=== PATIENT | male | born 1950 | race Caucasian/White ===

== ENCOUNTER 2018-05-15 10:38 | Observation (INO) ==
[2018-05-15] MEDS ORDERED: fentaNYL Citrate Inj 100 MCG/2 ML Ampul IV.PUSH ONE ×2 (14:57→15:30)
[2018-05-15] MEDS ORDERED: Bisacodyl 10 MG Supp RECTAL PRN (17:20)
[2018-05-15] MEDS ORDERED: Acetaminophen 325 MG Tablet PO PRN (17:20)
[2018-05-15] MEDS ORDERED: Iohexol 350 MG/ML 50 ML Vial (for Rad Diag) IVCONTRAST ONE (17:26)
--- NOTE | 2018-05-15 17:40 | P.HP ---
History of Present Illness Service: Hospitalist Primary Care Physician: UNKNOWN Chief Complaint: Abdominal pain History of Present Illness: Mr. Peraza is a 67-year-old male with a history of hypertension, ESRD on peritoneal dialysis who presented to the emergency department in [place] due to abdominal pain that started at night on 05/14/2018. Patient started experiencing abdominal pain at night during his peritoneal dialysis. He woke up with pain during peritoneal dialysis. He described his pain as dull but also stabbing sharp pain occasionally. His pain is mostly located in the epigastric and slightly to the left. He does not have much pain over RUQ. However, if palpated, he feels pain in the RUQ. He did not take any medication for his pain. He denies any chest pain, shortness of breath, fever or chills. However he had some nausea and vomiting in the morning on the day of presentation to the ED. GB ultrasound indicated cholecystitis. Patient was subsequently transferred to the main hospital for further management. Past medical history: ESRD on peritoneal dialysis, BPH, diabetes, GERD, hypertension, hyperlipidemia Past surgical history: Social history: Patient denies using tobacco, alcohol. Family history: Mother had Alzheimer's disease, diabetes and CAD, father had diabetes mellitus and CAD. Review of Systems All other systems reviewed negative except as stated [facility] - History History Provided By: Patient - Medical History Medical History: Medical History (Last Reviewed 05/15/18 @ 18:13 by Eva Mortensen DO) Arthritis BPH (benign prostatic hyperplasia) Diabetes 1.5, managed as type 2 ESRD on peritoneal dialysis GERD (gastroesophageal reflux disease) HTN (hypertension) Hyperlipidemia Kidney stones - Family History Family History: Family History (Last Reviewed 05/15/18 @ 18:13 by Eva Mortensen DO) Brother Prostate CA Mother Alzheimer disease Diabetes 1.5, managed as type 2 CAD (coronary artery disease) Father Diabetes 1.5, managed as type 2 CAD (coronary artery disease) - Tobacco History Second Hand Smoke Exposure: No Smoking Status: Never smoker - Alcohol History How Often Do You Have a Drink Containing Alcohol: Never - Substance Use History Substance History: No History of Abuse - Travel History History of Recent Travel: No Medications and Allergies Active Medications: Active Medications Acetaminophen (Tylenol) 650 mg PO Q4H PRN PRN Reason: Headache, fever, pain 1-4 Al Hydroxide/Mg Hydroxide (Milk Of Magnesia Liq) 30 ml PO Q12H PRN PRN Reason: Mild Constipation Bisacodyl (Dulcolax Supp) 10 mg RECTAL DAILY PRN PRN Reason: SEVERE CONSITIPATION Cefotaxime Sodium 2,000 mg/ (Sodium Chloride) 100 mls @ 200 mls/hr IV.SIG Q8H BALDO Lactulose (Lactulose Liq) 30 ml PO DAILY PRN PRN Reason: SEVERE CONSITIPATION Ondansetron HCl (Zofran Inj) 4 mg IV.PUSH Q6H PRN PRN Reason: NAUSEA OR VOMITING Sennosides (Senokot) 17.2 mg PO Q12H PRN PRN Reason: Moderate Constipation Sodium Chloride (Ns Flush) 2 ml IV.FLUSH PRN PRN PRN Reason: FLUSH AFTER USING IV ACCESS Sodium Chloride (Ns Flush) 2 ml IV.FLUSH BID BALDO Allergies Allergy/AdvReac Type Severity Reaction Status Date / Time No Known Allergies Allergy Verified 05/15/18 10:53 Home Medications Medication Instructions Recorded Confirmed Type B complex-vitamin C-folic acid 1 tab PO DAILY 05/15/18 05/15/18 History [Renal Vitamin] amlodipine 10 mg PO DAILY 05/15/18 05/15/18 History calcitriol 0.5 mcg PO WEEKLY 05/15/18 05/15/18 History furosemide [Lasix] 40 mg PO BID 05/15/18 05/15/18 History glipizide 5 mg PO DAILY 05/15/18 05/15/18 History hydralazine 50 mg PO BID 05/15/18 05/15/18 History metoprolol tartrate 50 mg PO BID 05/15/18 05/15/18 History Exam Narrative: GENERAL: This is a well-nourished, well-developed patient, in no apparent distress. SKIN: No rashes, ecchymoses or lesions. Warm and dry. HEAD: Atraumatic. Normocephalic. No temporal or scalp tenderness. EYES: Pupils equal round and reactive. No injection or drainage. ENT: Nose without bleeding, purulent drainage or septal hematoma. Airway patent. NECK: Trachea midline. No lymphadenopathy. Supple, nontender, no meningeal signs. CARDIOVASCULAR: Regular rate and rhythm without murmurs, gallops, or rubs. No JVD. RESPIRATORY: Clear to auscultation. Breath sounds equal bilaterally. No wheezes , rales, or rhonchi. GASTROINTESTINAL: Abdomen soft, non-tender, nondistended. No guarding. PD catheter site unremarkable without any surrounding erythema. He has mild tenderness to palpation over epigastric area. Mild tenderness to deep palpation in the right upper quadrant. MUSCULOSKELETAL: Extremities without clubbing, cyanosis, or edema. NEUROLOGICAL: Awake and alert. Cranial nerves II through XII intact. No focal neurological deficits. Normal speech. Results - Labs CBC & Chem 7: 05/16/18 07:33 05/16/18 07:33 Labs: 05/15/18 05/15/18 05/15/18 Range/Units 11:09 11: 11:09 WBC (4.0-11.0) th/mm3 RBC (4.50-5.90) mil/mm3 Hgb (13.0-17.0) gm/dL Hct (39.0-51.0) % MCV (80.0-100.0) fL MCH (27.0-34.0) pg MCHC (32.0-36.0) % RDW (11.6-17.2) % Plt Count (150-450) th/mm3 MPV (7.0-11.0) fL Immature Gran % (Auto) (0-6) % Neut % (Auto) (16.0-70.0) % Lymph % (Auto) (9.0-44.0) % [place] % (Auto) (0.0-8.0) % Eos % (Auto) (0.0-4.0) % Baso % (Auto) (0.0-2.0) % Immature Gran # (Auto) th/mm3 Neut # (Auto) (1.8-7.7) th/mm3 Lymph # (Auto) (1.0-4.8) th/mm3 [place] # (Auto) (0.0-0.9) th/mm3 Eos # (Auto) (0.0-0.4) th/mm3 Baso # (Auto) (0.0-0.2) th/mm3 Differential Comment PT 10.3 (9.8-11.6) sec INR 1.0 Ratio APTT 25.2 (23.4-31.7) sec Sodium (136-145) meq/L Potassium (3.5-5.1) meq/L Chloride (98-107) meq/L Carbon Dioxide (21.0-32.0) meq/L Anion Gap (5-15) meq/L BUN (7-18) mg/dL Creatinine (0.60-1.30) mg/dL Estimated GFR (>89) mL/min Random Glucose (74-106) mg/dL Lactic Acid 1.6 (0.4-2.0) mmol/L Calcium (8.5-10.1) mg/dL Magnesium (1.5-2.5) mg/dL Total Bilirubin (0.2-1.0) mg/dL AST (15-37) U/L ALT (12-78) U/L Alkaline Phosphatase (45-117) U/L Total Creatine Kinase 125 (39-308) U/L CK-MB (CK-2) 1.8 (0.5-3.6) ng/mL Troponin I Less than 0.02 L (0.02-0.05) ng/mL Total Protein (6.4-8.2) g/dL Albumin (3.4-5.0) g/dL Lipase (73-393) U/L Peritoneal RBC (0-0) /mm3 Periton Nuc Cells (0-10) /mm3 Periton Neutrophils % Periton Lymphocytes % Peritoneal Monocytes % Periton Histiocytes % Peritoneal Fld Comment 05/15/18 05/15/18 05/15/18 Range/Units 11:09 11:09 14:05 WBC 8.3 (4.0-11.0) th/mm3 RBC 3.34 L (4.50-5.90) mil/mm3 Hgb 10.4 L (13.0-17.0) gm/dL Hct 30.1 L (39.0-51.0) % MCV 90.1 (80.0-100.0) fL MCH 31.1 (27.0-34.0) pg MCHC 34.6 (32.0-36.0) % RDW 13.5 (11.6-17.2) % Plt Count 221 (150-450) th/mm3 MPV 11.1 H (7.0-11.0) fL Immature Gran % (Auto) 0.4 (0-6) % Neut % (Auto) 81.7 H (16.0-70.0) % Lymph % (Auto) 12.4 (9.0-44.0) % [place]elope % (Auto) 4.4 (0.0-8.0) % Eos % (Auto) 0.4 (0.0-4.0) % Baso % (Auto) 0.7 (0.0-2.0) % Immature Gran # (Auto) 0.0 th/mm3 Neut # (Auto) 6.8 (1.8-7.7) th/mm3 Lymph # (Auto) 1.0 (1.0-4.8) th/mm3 [place] # (Auto) 0.4 (0.0-0.9) th/mm3 Eos # (Auto) 0.0 (0.0-0.4) th/mm3 Baso # (Auto) 0.1 (0.0-0.2) th/mm3 Differential Comment . PT (9.8-11.6) sec INR Ratio APTT (23.4-31.7) sec Sodium 141 (136-145) meq/L Potassium 4.0 (3.5-5.1) meq/L Chloride 103 (98-107) meq/L Carbon Dioxide 24.0 (21.0-32.0) meq/L Anion Gap 14 (5-15) meq/L BUN 61 H (7-18) mg/dL Creatinine 11.30 H* (0.60-1.30) mg/dL Estimated GFR 5 L (>89) mL/min Random Glucose 180 H (74-106) mg/dL Lactic Acid (0.4-2.0) mmol/L Calcium 9.2 (8.5-10.1) mg/dL Magnesium 2.0 (1.5-2.5) mg/dL Total Bilirubin 0.5 (0.2-1.0) mg/dL AST 21 (15-37) U/L ALT 28 (12-78) U/L Alkaline Phosphatase 74 (45-117) U/L Total Creatine Kinase (39-308) U/L CK-MB (CK-2) (0.5-3.6) ng/mL Troponin I (0.02-0.05) ng/mL Total Protein 7.4 (6.4-8.2) g/dL Albumin 3.2 L (3.4-5.0) g/dL Lipase 335 (73-393) U/L Peritoneal RBC 2215 H (0-0) /mm3 Periton Nuc Cells 320 H (0-10) /mm3 Periton Neutrophils 11 % Periton Lymphocytes 55 % Peritoneal Monocytes 18 % Periton Histiocytes 16 % Peritoneal Fld Comment - Imaging Abdomen/Pelvis CT 05/15/18 10:54 CONCLUSION: 1. No acute CT abnormality in the abdomen or pelvis. 2. End-stage appearing kidneys with peritoneal dialysis catheter in the pelvis. Trace free fluid around a peritoneal dialysis catheter without significant focal fluid collection. 3. Well marginated lytic lesion in the right acetabulum which may reflect an atypical subchondral cyst. Overall, this lesion has characteristics of low biological activity. Chest X-Ray 05/15/18 10:54 CONCLUSION: Negative examination. Gallbladder Ultrasound 05/15/18 12:52 CONCLUSION: 1. Cholelithiasis with mild diffuse gallbladder wall thickening, consistent with cholecystitis. However, there is no pericholecystic fluid or sonographic Landers's sign to confirm acute cholecystitis. HIDA scan may be performed if there is clinical uncertainty and continued significant clinical concern regarding acute cholecystitis. 2. Normal caliber common bile duct without intrahepatic ductal dilatation. Caprini VTE Risk Assessment Caprini VTE Risk Assessment: No/Low Risk (score <= 1) Caprini Risk Assessment Model: Point Value = 1 Point Value = 2 Point Value = 3 Point Value = 5 Age 41-60 Minor surgery BMI > 25 kg/m2 Swollen legs Varicose veins or History of unexplained or recurrent spontaneous Oral contraceptives or hormone replacement Sepsis (< 1 month) Serious lung disease, including pneumonia (< 1 month) Abnormal pulmonary function Acute myocardial infarction Congestive heart failure (< 1 month) History of inflammatory bowel disease Medical patient at bed rest Age 61-74 Arthroscopic surgery Major open surgery (> 45 min) Laparoscopic surgery (> 45 min) Malignancy Confined to bed (> 72 hours) Immobilizing plaster cast Central venous access Age >= 75 History of VTE Family history of VTE Factor V Leiden Prothrombin 29101C Lupus anticoagulant Anticardiolipin antibodies Elevated serum homocysteine Heparin-induced thrombocytopenia Other congenital or acquired thrombophilia Stroke (< 1 month) Elective arthroplasty Hip, pelvis, or leg fracture Acute spinal cord injury (< 1 month) Prophylaxis Regimen: Total Risk Factor Score Risk Level Prophylaxis Regimen 0-1 Low Early ambulation 2 Moderate Order ONE of the following: *Sequential Compression Device (SCD) *Heparin 5000 units SQ BID 3-4 Higher Order ONE of the following medications: *Heparin 5000 units SQ TID *Enoxaparin/Lovenox 40 mg SQ daily (WT < 150 kg, CrCl > 30 mL/min) *Enoxaparin/Lovenox 30 mg SQ daily (WT < 150 kg, CrCl > 10-29 mL/min) *Enoxaparin/Lovenox 30 mg SQ BID (WT < 150 kg, CrCl > 30 mL/min) AND/OR *Sequential Compression Device (SCD) 5 or more Highest Order ONE of the following medications: *Heparin 5000 units SQ TID (Preferred with Epidurals) *Enoxaparin/Lovenox 40 mg SQ daily (WT < 150 kg, CrCl > 30 mL/min) *Enoxaparin/Lovenox 30 mg SQ daily (WT < 150 kg, CrCl > 10-29 mL/min) *Enoxaparin/Lovenox 30 mg SQ BID (WT < 150 kg, CrCl > 30 mL/min) AND *Sequential Compression Device (SCD) Assessment and Plan - Plan Mr. Peraza is a 67-year-old male with a history of hypertension, ESRD on peritoneal dialysis who presents to the emergency department due to abdominal pain and associated nausea vomiting. Gallbladder ultrasound shows cholecystitis. Acute cholecystitis -We will consult general surgery. -Continue ceftriaxone 2 g every 24 hours. -HIDA scan. ESRD -Nephrology consulted for peritoneal dialysis. -Low suspicion for peritonitis. PMN count was well below 250. Diabetes mellitus -Pt takes Glipizide at home. -Will start sliding scale insulin -If needed, we will also start Levemir. Full code. SCDs for now.
[2018-05-15] MEDS ORDERED: Cefotaxime Inj 2,000 MG in Sodium Chloride 0.9% Inj 100 ML IV.SIG SCH (18:00)
[2018-05-15] MEDS ORDERED: Heparin 10,000 UNITS/10 ML Vial (for IV use) OTHER PRN (18:29)
--- NOTE | 2018-05-15 18:58 | P.CONGS ---
[facility] Gen Surgery Consult Note Consult date: 05/15/18 Reason for consult: gallstones Requesting physician: Eva Mortensen Narrative: This is a 67 year old male with a past medical history of hypertension, ESRD on peritoneal dialysis, dyslipidemia, GERD, type 2 DM and BPH. He reports he went to bed last night in his usual state of health. He connected himself for PD and about 0200 woke up with severe abdominal pain with associated nausea and vomiting. He disconnected himself the dialysis machine. The pain continued and he went to the ED in [place]. A CT abdomen/pelvis was done. An US of the gallbladder was done with showed cholelithiasis with mild gallbladder wall thickening. A sample from the peritoneal dialysis catheter was obtained and sent for culture and sensitivity. Gram stains shows no organisms seen. The patient was transferred to [place] and a General Surgery consultation has been requested. Review of Systems All other systems reviewed negative except as stated in [facility] - History History Provided By: Patient - Medical History Medical History: Medical History (Last Updated 05/15/18 @ 18:54 by GABRIEL Justin) Peritoneal dialysis catheter dysfunction Presence of peritoneal dialysis catheter Arthritis BPH (benign prostatic hyperplasia) Diabetes 1.5, managed as type 2 ESRD on peritoneal dialysis GERD (gastroesophageal reflux disease) HTN (hypertension) Hyperlipidemia Kidney stones - Family History Family History: Family History (Last Reviewed 05/16/18 @ 11:08 by Briana Antony MD) Brother Prostate CA Mother Alzheimer disease Diabetes 1.5, managed as type 2 CAD (coronary artery disease) Father Diabetes 1.5, managed as type 2 CAD (coronary artery disease) - Tobacco History Second Hand Smoke Exposure: No Smoking Status: Never smoker - Alcohol History How Often Do You Have a Drink Containing Alcohol: Never - Substance Use History Substance History: No History of Abuse - Travel History History of Recent Travel: No Medications and Allergies Allergies Allergy/AdvReac Type Severity Reaction Status Date / Time No Known Allergies Allergy Verified 05/15/18 10:53 Home Medications Medication Instructions Recorded Confirmed Type B complex-vitamin C-folic acid 1 tab PO DAILY 05/15/18 05/15/18 History [Renal Vitamin] amlodipine 10 mg PO DAILY 05/15/18 05/15/18 History calcitriol 0.5 mcg PO WEEKLY 05/15/18 05/15/18 History furosemide [Lasix] 40 mg PO BID 05/15/18 05/15/18 History glipizide 5 mg PO DAILY 05/15/18 05/15/18 History hydralazine 50 mg PO BID 05/15/18 05/15/18 History metoprolol tartrate 50 mg PO BID 05/15/18 05/15/18 History Active Medications: Active Medications Acetaminophen (Tylenol) 650 mg PO Q4H PRN PRN Reason: Headache, fever, pain 1-4 Al Hydroxide/Mg Hydroxide (Milk Of Magnesia Liq) 30 ml PO Q12H PRN PRN Reason: Mild Constipation Bisacodyl (Dulcolax Supp) 10 mg RECTAL DAILY PRN PRN Reason: SEVERE CONSITIPATION Heparin Sodium (Porcine) (Heparin Inj) 1,000 units OTHER WITH DIALYSIS PRN PRN Reason: SEE LABEL COMMENTS Ceftriaxone Sodium 2,000 mg/ (Sodium Chloride) 100 mls @ 200 mls/hr IV.SIG Q24H BALDO Lactulose (Lactulose Liq) 30 ml PO DAILY PRN PRN Reason: SEVERE CONSITIPATION Ondansetron HCl (Zofran Inj) 4 mg IV.PUSH Q6H PRN PRN Reason: NAUSEA OR VOMITING Sennosides (Senokot) 17.2 mg PO Q12H PRN PRN Reason: Moderate Constipation Sodium Chloride (Ns Flush) 2 ml IV.FLUSH PRN PRN PRN Reason: FLUSH AFTER USING IV ACCESS Sodium Chloride (Ns Flush) 2 ml IV.FLUSH BID BALDO Sodium Chloride (Ns Flush) 10 ml IV.FLUSH UNSCH PRN PRN Reason: SEE LABEL COMMENTS Exam Narrative: GENERAL: Awake and alert male sitting on the side of the bed in no acute distress. SKIN: Warm and dry. HEAD: Atraumatic. Normocephalic. EYES: Pupils equal and round. No scleral icterus. No injection or drainage. ENT: No nasal bleeding or discharge. Mucous membranes pink and moist. NECK: Trachea midline. CARDIOVASCULAR: Regular rate and rhythm. RESPIRATORY: No accessory muscle use. Clear to auscultation. Breath sounds equal bilaterally. GASTROINTESTINAL: Abdomen soft, nondistended. RUQ tenderness with palpation. PD catheter in place with no signs of infection. Faint laparoscopic scars on abdomen. MUSCULOSKELETAL: Extremities without clubbing, cyanosis, or edema. No obvious deformities. NEUROLOGICAL: Awake and alert. No obvious cranial nerve deficits. Motor grossly within normal limits. Five out of 5 muscle strength in the arms and legs. Normal speech. PSYCHIATRIC: Appropriate mood and affect; insight and judgment normal. - Routine Abdominal Exam Present: soft Comments: No tenderness Results - Labs 05/16/18 07:33 05/16/18 07:33 - Imaging CT scan - abdomen: report reviewed, image reviewed US - abdomen: report reviewed Assessment and Plan - Assessment (1) Cholelithiasis Code(s): K80.20 - Calculus of gallbladder without cholecystitis without obstruction Status: Acute Plan: 67 year old male with ESRD on PD; with RUQ pain; cholelithiasis -Will get HIDA scan tomorrow -Recheck labs in the morning -Await culture of PD catheter -Discussed with patient about obtaining HIDA ---all questions answered -Thank you for this consult; We will continue to follow Discussed with nurse practitioner; will obtain HIDA scan first and depending on findings we will proceed accordingly. The exam, history, and the medical decision-making described in the above note were completed with the assistance of the mid-level provider. I reviewed and agree with the findings presented. I attest that I had a [id number] encounter with the patient on the same day, and personally performed and documented my assessment and findings in the medical record. - Plan Discussed Condition With: Dr. Alexandr Mortensen RN Mr. Peraza
[2018-05-15 21:07] LABS: Eosinophils,Peritoneal Fluid 1 %; Mesothelial,Peritoneal Fluid 2 %; Neutrophils,Peritoneal Fluid 15 %; RBC,Peritoneal Fluid 228 /mm3 (0-0)
[2018-05-15] MEDS ORDERED: Dextrose 50% in Water 50 ML Vial IV.PUSH PRN (22:54)
[2018-05-15] MEDS ORDERED: Calcitriol 0.25 MCG Capsule PO SCH (23:00)
[2018-05-16] MEDS: Insulin NovoLOG Aspart Correctional Sugar Inj SQ SCH ×4 (07:34→21:14)
[2018-05-16 08:04] LABS: Baso % (Auto) 0.7 % (0.0-2.0); Eos # (Auto) 0.3 th/mm3 (0.0-0.4); Eos % (Auto) 4.9 % (0.0-4.0); Hematocrit 29.5 % (39.0-51.0); Hemoglobin 10.2 gm/dL (13.0-17.0); Lymph # (Auto) 1.3 th/mm3 (1.0-4.8); Lymph % (Auto) 20.6 % (9.0-44.0); Mean Corpuscular HGB Conc 34.6 % (32.0-36.0); Mean Corpuscular Volume 92.5 fL (80.0-100.0); Mean Platelet Volume 9.4 fL (7.0-11.0); Mono # (Auto) 0.4 th/mm3 (0.0-0.9); Mono % (Auto) 5.8 % (0.0-8.0); Neut # (Auto) 4.5 th/mm3 (1.8-7.7); Platelet Count 219 th/mm3 (150-450); Red Cell Distribution Width 14.4 % (11.6-17.2); White Blood Count 6.5 th/mm3 (4.0-11.0)
[2018-05-16 08:10] LABS: Chloride 102 meq/L (98-107); Potassium 3.3 meq/L (3.5-5.1); Sodium 141 meq/L (136-145)
[2018-05-16 08:15] LABS: Calcium 8.7 mg/dL (8.5-10.1)
[2018-05-16 08:16] LABS: Albumin 2.8 g/dL (3.4-5.0); Anion Gap 10 meq/L (5-15); Blood Urea Nitrogen 56 mg/dL (7-18); Glucose,Random 139 mg/dL (74-106)
[2018-05-16 08:19] LABS: Alanine Aminotransferase 24 U/L (12-78); Aspartate Aminotransferase 13 U/L (15-37); Glomerular Filtration Rate 5 mL/min (>89); Phosphorus 5.1 mg/dL (2.5-4.9)
[2018-05-16 08:21] LABS: Total Protein 6.5 g/dL (6.4-8.2)
[2018-05-16 08:22] LABS: Alkaline Phosphatase 62 U/L (45-117)
--- NOTE | 2018-05-16 08:34 | P.PN ---
Subjective Interval history: Follow-up for possible acute cholecystitis. Patient is currently doing well. He denies any chest pain, shortness of breath, fever or chills. He also denies any abdominal pain. He is currently n.p.o. and waiting for HIDA scan. Physical Exam Vital signs: Vital Signs 05/15/18 17:50 05/15/18 20:00 05/16/18 00:00 Temperature 97.3 F L 97.6 F 96.4 F L Pulse Rate 20 L 64 61 Respiratory Rate 20 20 20 Blood Pressure 132/68 138/67 148/70 H Pulse Oximetry 98 99 98 Intake & Output 05/15/18 05/16/18 05/16/18 18:59 06:59 18:59 Intake Total 160 / 160 Output Total 326 / 326 Balance 160 / 160 -326 / -326 Weight 77.5 kg Intake: IV 100 / 100 Rocephin Inj 2,000 MG In NS Inj 100 / 100 100 ML @ 200 mls/hr IV.SIG Q24H BALDO Rx#:[id number] Oral 60 / 60 Output: Peritoneal Amount 326 / 326 Other: # Voids 2 Narrative: GENERAL: Alert, oriented x3, NAD. SKIN: Warm and dry. HEAD: Normocephalic. EYES: No scleral icterus. No injection or drainage. NECK: Supple, trachea midline. No JVD or lymphadenopathy. CARDIOVASCULAR: Regular rate and rhythm without murmurs, gallops, or rubs. RESPIRATORY: Breath sounds equal bilaterally. No accessory muscle use. GASTROINTESTINAL: Abdomen soft, non-tender, nondistended. MUSCULOSKELETAL: No cyanosis, or edema. BACK: Nontender without obvious deformity. No CVA tenderness. Results - Labs CBC & Chem 7: 05/16/18 07:33 05/16/18 07:33 Laboratory Results - last 24 hr 05/15/18 05/16/18 05/16/18 20:00 07:32 07:33 CBC w Diff WBC RBC Hgb Hct MCV MCH MCHC RDW Plt Count MPV Neut % (Auto) Lymph % (Auto) [place] % (Auto) Eos % (Auto) Baso % (Auto) Neut # (Auto) Lymph # (Auto) [place] # (Auto) Eos # (Auto) Baso # (Auto) WBC Differential Differential Comment Sodium 141 Potassium 3.3 L Chloride 102 Carbon Dioxide 29.0 Anion Gap 10 BUN 56 H POC Glucose 150 H Random Glucose 139 H Calcium 8.7 AST 13 L ALT 24 Albumin 2.8 L Peritoneal RBC 228 H Periton Nuc Cells 26 H Periton Neutrophils 15 Periton Lymphocytes 66 Peritoneal Monocytes 10 Peritoneal Eosinophils 1 Periton Mesothelial 2 Periton Histiocytes 6 05/16/18 07:33 CBC w Diff Auto diff final WBC 6.5 RBC 3.20 L Hgb 10.2 L Hct 29.5 L MCV 92.5 MCH 32.0 MCHC 34.6 RDW 14.4 Plt Count 219 MPV 9.4 Neut % (Auto) 68.0 Lymph % (Auto) 20.6 [place] % (Auto) 5.8 Eos % (Auto) 4.9 H Baso % (Auto) 0.7 Neut # (Auto) 4.5 Lymph # (Auto) 1.3 [place] # (Auto) 0.4 Eos # (Auto) 0.3 Baso # (Auto) 0.0 WBC Differential . Differential Comment . Sodium Potassium Chloride Carbon Dioxide Anion Gap BUN POC Glucose Random Glucose Calcium AST ALT Albumin Peritoneal RBC Periton Nuc Cells Periton Neutrophils Periton Lymphocytes Peritoneal Monocytes Peritoneal Eosinophils Periton Mesothelial Periton Histiocytes Assessment and Plan - Plan Mr. Peraza is a 67-year-old male with a history of hypertension, ESRD on peritoneal dialysis who presents to the emergency department due to abdominal pain and associated nausea vomiting. Gallbladder ultrasound shows cholecystitis. Acute cholecystitis -Consulted general surgery. -Continue ceftriaxone 2 g every 24 hours. -HIDA scan pending today. If HIDA negative, patient can likely start a diet and probably discharge home. ESRD -Nephrology consulted for peritoneal dialysis. -Low suspicion for peritonitis. PMN count was well below 250. Diabetes mellitus -Pt takes Glipizide at home. -Will continue sliding scale insulin -If needed, we will also start Levemir. -Goal blood glucose 140-180. Full code. SCDs for now.
[2018-05-16] MEDS: hydrALAZINE 50 MG Tablet PO SCH ×2 (09:37→21:15)
[2018-05-16] MEDS: amLODIPine 5 MG Tablet PO SCH (09:37)
[2018-05-16] MEDS: Metoprolol Tartrate 50 MG Tablet PO SCH ×2 (09:37→21:15)
--- NOTE | 2018-05-16 11:11 | P.CONNP ---
History of Present Illness Service: Nephrology Consult date: 05/16/18 Requesting Physician: Eva Mortensen Reason for Consult: ESRD Primary Care Provider: UNKNOWN Chief Complaint: Abdominal pain History of Present Illness: Patient is a 67-year-old white male with history of type 2 diabetes, BPH, ESRD on peritoneal dialysis who woke up with abdominal pain accompanied with nausea and vomiting and came to the emergency, he states he is doing peritoneal dialysis on a regular basis his fluid is clear and pain has resolved and subsided, white cell count on peritoneal dialysis fluid was 15, RBCs 228 Ultrasound showed thickened gallbladder, gallstones, he states he is feeling much better denies any nausea vomiting or abdominal pain today, peritoneal dialysis was done last night. Review of Systems Constitutional: Denies anorexia, Denies body ache(s), Denies chills, Denies daytime sleepiness, Denies excessive sweating, Denies fatigue, Denies fever(s), Denies headache(s), Denies increased appetite, Denies lack of energy, Denies malaise, Denies night sweats, Denies weakness, Denies weight gain, Denies weight loss, Denies other Eyes: Denies blind spots, Denies blurry vision, Denies bulging eyes, Denies change in vision, Denies double vision, Denies discharge, Denies dry eyes, Denies floaters, Denies irritation, Denies itchy eyes, Denies loss of vision, Denies pain, Denies requires corrective lenses, Denies sensitivity to light, Denies other Ears, Nose, Mouth, and Throat: Denies abnormal hearing, Denies bleeding gums, Denies bad breath, Denies change in voice, Denies dental pain, Denies difficulty swallowing, Denies dizziness, Denies dry mouth, Denies ear discharge , Denies ear pain, Denies facial pain, Denies headache(s), Denies hearing loss, Denies hoarseness, Denies lip swelling, Denies nosebleed, Denies mouth lesions, Denies mouth pain, Denies nasal congestion, Denies nasal discharge, Denies nasal obstruction, Denies nasal trauma, Denies neck lump, Denies neck pain, Denies nose pain, Denies pain with swallowing, Denies poor balance, Denies post nasal drip, Denies ringing in the ears, Denies sinus pain, Denies sinus pressure , Denies sore throat, Denies throat swelling, Denies tongue swelling, Denies other Cardiovascular: Denies chest pain, Denies chest pain at rest, Denies chest pain with activity, Denies excessive sweating, Denies fainting, Denies fast heart rate, Denies foot swelling, Denies generalized swelling, Denies irregular heart rhythm, Denies leg pain with activity, Denies leg sores, Denies leg swelling, Denies lightheadedness, Denies radiating jaw, neck or arm pain, Denies rapid, pounding, or irregular heartbeat, Denies shortness of breath, Denies shortness of breath with activity, Denies shortness of breath when lying down, Denies shortness of breath causing sudden awakening, Denies slow heart rate, Denies other Respiratory: Denies change in phlegm color, Denies chest congestion, Denies cough, Denies coughing up blood, Denies excessive phlegm production, Denies pain on inspiration, Denies pain with cough, Denies shortness of breath, Denies shortness of breath with activity, Denies snoring, Denies stridor, Denies wheezing, Denies other Gastrointestinal: Reports abdominal pain Musculoskeletal: Reports other Skin/Breast: Reports other Psychiatric: Denies abnormal sleep pattern, Denies anxiety, Denies behavioral changes, Denies change in appetite, Denies change in sex drive, Denies confusion , Denies depression, Denies difficulty concentrating, Denies hearing things others do not hear, Denies hopelessness, Denies irritability, Denies lack of enjoyment, Denies memory loss, Denies mood swings, Denies panic attacks, Denies paranoia, Denies seeing things others do not see, Denies sensing things others do not sense, Denies tactile hallucinations, Denies thoughts of hurting/killing others, Denies thoughts of hurting/killing yourself, Denies other Endocrine: Denies cold intolerance, Denies excessive sweating, Denies flushing, Denies heat intolerance, Denies increased hunger, Denies increased thirst, Denies increased urination, Denies rapid, pounding, or irregular heartbeat, Denies other Hematologic/Lymphatic: Denies easy bleeding, Denies easy bruising, Denies enlarged lymph nodes, Denies other Allergic/Immunologic: Denies GI upset with certain foods, Denies hives, Denies itchy eyes, Denies lip swelling, Denies seasonal runny nose, Denies throat swelling, Denies tongue swelling, Denies wheezing, Denies other PMFSH - History History Provided By: Patient - Medical History Medical History: Medical History (Last Reviewed 05/16/18 @ 11:08 by Briana Antony MD) Peritoneal dialysis catheter dysfunction Presence of peritoneal dialysis catheter Arthritis BPH (benign prostatic hyperplasia) Diabetes 1.5, managed as type 2 ESRD on peritoneal dialysis GERD (gastroesophageal reflux disease) HTN (hypertension) Hyperlipidemia Kidney stones - Family History Family History: Family History (Last Reviewed 05/16/18 @ 11:08 by Briana Antony MD) Brother Prostate CA Mother Alzheimer disease Diabetes 1.5, managed as type 2 CAD (coronary artery disease) Father Diabetes 1.5, managed as type 2 CAD (coronary artery disease) - Social History I have reviewed the patient's Social History: Yes - Tobacco History Second Hand Smoke Exposure: No Smoking Status: Never smoker - Alcohol History How Often Do You Have a Drink Containing Alcohol: Never - Substance Use History Substance History: No History of Abuse - Travel History History of Recent Travel: No Recent Travel in the [place] Within the Last 8 Weeks: No Recent Travel Out of the Country Within the Last 8 Weeks: No Medications and Allergies Active Medications: Active Medications Acetaminophen (Tylenol) 650 mg PO Q4H PRN PRN Reason: Headache, fever, pain 1-4 Al Hydroxide/Mg Hydroxide (Milk Of Magnesia Liq) 30 ml PO Q12H PRN PRN Reason: Mild Constipation Amlodipine Besylate (Norvasc) 10 mg PO DAILY [facility] Last Admin: 05/16/18 09:37 Dose: 10 mg Bisacodyl (Dulcolax Supp) 10 mg RECTAL DAILY PRN PRN Reason: SEVERE CONSITIPATION Calcitriol (Rocaltrol) 0.5 mcg PO WEEKLY [facility] Dextrose (D50w Vial) 50 ml IV.PUSH UNSCH PRN PRN Reason: PER HYPOGLYCEMIA PROTOCOL Glucagon (Glucagon Inj) 1 mg OTHER PRN PRN PRN Reason: for Hypoglycemia Protocol Heparin Sodium (Porcine) (Heparin Inj) 1,000 units OTHER WITH DIALYSIS PRN PRN Reason: SEE LABEL COMMENTS Hydralazine HCl (Apresoline) 50 mg PO BID [facility] Last Admin: 05/16/18 09:37 Dose: 50 mg Ceftriaxone Sodium 2,000 mg/ (Sodium Chloride) 100 mls @ 200 mls/hr IV.SIG Q24H [facility] Last Infusion: 05/15/18 20:09 Dose: Infused Insulin Aspart (Novolog Insulin Correctional Sugar Inj) 0 unit SQ ACHS [facility]; Protocol Last Admin: 05/16/18 07:34 Dose: Not Given Lactulose (Lactulose Liq) 30 ml PO DAILY PRN PRN Reason: SEVERE CONSITIPATION Metoprolol Tartrate (Lopressor) 50 mg PO BID [facility] Last Admin: 05/16/18 09:37 Dose: 50 mg Ondansetron HCl (Zofran Inj) 4 mg IV.PUSH Q6H PRN PRN Reason: NAUSEA OR VOMITING Sennosides (Senokot) 17.2 mg PO Q12H PRN PRN Reason: Moderate Constipation Sodium Chloride (Ns Flush) 2 ml IV.FLUSH PRN PRN PRN Reason: FLUSH AFTER USING IV ACCESS Sodium Chloride (Ns Flush) 2 ml IV.FLUSH BID [facility] Last Admin: 05/16/18 09:37 Dose: 2 ml Sodium Chloride (Ns Flush) 10 ml IV.FLUSH UNSCH PRN PRN Reason: SEE LABEL COMMENTS Allergies Allergy/AdvReac Type Severity Reaction Status Date / Time No Known Allergies Allergy Verified 05/15/18 10:53 Home Medications Medication Instructions Recorded Confirmed Type B complex-vitamin C-folic acid 1 tab PO DAILY 05/15/18 05/15/18 History [Renal Vitamin] amlodipine 10 mg PO DAILY 05/15/18 05/15/18 History calcitriol 0.5 mcg PO WEEKLY 05/15/18 05/15/18 History furosemide [Lasix] 40 mg PO BID 05/15/18 05/15/18 History glipizide 5 mg PO DAILY 05/15/18 05/15/18 History hydralazine 50 mg PO BID 05/15/18 05/15/18 History metoprolol tartrate 50 mg PO BID 05/15/18 05/15/18 History Exam Vital signs: Vital Signs 05/15/18 17:50 05/15/18 20:00 05/16/18 00:00 Temperature 97.3 F L 97.6 F 96.4 F L Pulse Rate 20 L 64 61 Respiratory Rate 20 20 20 Blood Pressure 132/68 138/67 148/70 H Pulse Oximetry 98 99 98 05/16/18 08:00 Temperature 98.2 F Pulse Rate 67 Respiratory Rate 16 Blood Pressure 137/66 Pulse Oximetry 98 Intake & Output 05/15/18 05/16/18 05/16/18 18:59 06:59 18:59 Intake Total 160 / 160 Output Total 326 / 326 Balance 160 / 160 -326 / -326 Weight 77.5 kg Intake: IV 100 / 100 Rocephin Inj 2,000 MG In NS Inj 100 / 100 100 ML @ 200 mls/hr IV.SIG Q24H [facility] Rx#:[id number] Oral 60 / 60 Output: Peritoneal Amount 326 / 326 Other: # Voids 2 Narrative: GENERAL: Well-nourished, well-developed patient. SKIN: Warm and dry. HEAD: Normocephalic. EYES: No scleral icterus. No injection or drainage. NECK: Supple, trachea midline. No JVD or lymphadenopathy. CARDIOVASCULAR: Regular rate and rhythm without murmurs, gallops, or rubs. RESPIRATORY: Breath sounds equal bilaterally. No accessory muscle use. GASTROINTESTINAL: Abdomen soft, non-tender, nondistended. PD catheter on left side no drainage EXTREMITIES: As above NEUROLOGICAL: Awake, alert, and oriented x 3. Non-focal. Results - Lab Results 05/16/18 07:33 05/16/18 07:33 Most recent lab results Calcium 8.7 mg/dL (8.5-10.1) 05/16/18 07:33 Phosphorus 5.1 mg/dL (2.5-4.9) H 05/16/18 07:33 Assessment and Plan - Assessment (1) End-stage renal disease on peritoneal dialysis Code(s): N18.6 - End stage renal disease; Z99.2 - Dependence on renal dialysis Status: Acute (2) Cholelithiasis Code(s): K80.20 - Calculus of gallbladder without cholecystitis without obstruction Status: Acute - Plan Abdominal pain is resolved awaiting HIDA scan Patient can be discharged from nephrology point of view Peritoneal dialysis fluid did not showed signs of peritonitis Follow-up as outpatient once discharged
[2018-05-16] MEDS ORDERED: Ciprofloxacin 400 MG/200 ML 400 MG/200 ML PIGGYBACK IV.SIG SCH (13:15)
--- NOTE | 2018-05-16 14:24 | NM ---
EXAM DATE: 05/16/2018 2:12 PM EST AGE/SEX: 67 years / Male INDICATIONS: Abdominal pain. CLINICAL DATA: This is the patient's initial encounter. Patient reports that signs and symptoms have been present for 1 day and indicates a pain score of 3/10. MEDICAL/SURGICAL HISTORY: Diabetes mellitus type II. Hypertension. None. COMPARISON: No prior exams available for comparison. DOSE: 4.2 mCi Tc-99m mebrofenin i.v. TECHNIQUE: Following the intravenous administration of radiotracer, dynamic sequential images were pe rformed with continuous acquisition. Time-activity curves were generated. FINDINGS: Hepatic Kinetics: There is prompt uptake of radiotracer in the liver. No focal defects are seen. T here is normal rate of washout from the hepatic parenchyma. Biliary Clearance: Activity is first seen in the extrahepatic biliary system at 10 minutes. There i s normal excretion into the small bowel. Gallbladder: Activity is not seen in the gallbladder at 120 minutes. Biliary-Enteric Reflux: Observed. CONCLUSION: Nonvisualization of the gallbladder and 120 minutes suspicious for acute cholecystitis in the proper clinical setting. Delayed imaging at 24 hours could be performed for greater specificity. Electronically signed by: Narciso Hou MD 05/16/2018 2:22 PM EST
--- NOTE | 2018-05-16 18:01 | P.PNGS ---
Subjective Interval history: Resting in bed No RUQ abdominal pain Physical Exam Vital signs: Vital Signs 05/15/18 20:00 05/16/18 00:00 05/16/18 08:00 Temperature 97.6 F 96.4 F L 98.2 F Pulse Rate 64 61 67 Respiratory Rate 20 20 16 Blood Pressure 138/67 148/70 H 137/66 Pulse Oximetry 99 98 98 05/16/18 16:00 Temperature 98.0 F Pulse Rate 63 Respiratory Rate 16 Blood Pressure 128/64 Pulse Oximetry 98 Intake & Output 05/15/18 05/16/18 05/16/18 18:59 06:59 18:59 Intake Total 160 / 160 Output Total 326 / 326 Balance 160 / 160 -326 / -326 Weight 77.5 kg Intake: IV 100 / 100 Rocephin Inj 2,000 MG In NS Inj 100 / 100 100 ML @ 200 mls/hr IV.SIG Q24H [facility] Rx#:[id number] Oral 60 / 60 Output: Peritoneal Amount 326 / 326 Other: # Voids 2 Narrative: Alert and awake Abd: benign exam Results - Labs 05/16/18 07:33 05/16/18 07:33 Laboratory Results - last 24 hr 05/15/18 05/16/18 05/16/18 20:00 07:32 07:33 CBC w Diff WBC RBC Hgb Hct MCV MCH MCHC RDW Plt Count MPV Neut % (Auto) Lymph % (Auto) Moca % (Auto) Eos % (Auto) Baso % (Auto) Neut # (Auto) Lymph # (Auto) Moca # (Auto) Eos # (Auto) Baso # (Auto) WBC Differential Differential Comment Sodium 141 Potassium 3.3 L Chloride 102 Carbon Dioxide 29.0 Anion Gap 10 BUN 56 H Creatinine 11.00 H* Estimated GFR 5 L POC Glucose 150 H Random Glucose 139 H Calcium 8.7 Phosphorus 5.1 H Total Bilirubin 0.5 AST 13 L ALT 24 Alkaline Phosphatase 62 Total Protein 6.5 D Albumin 2.8 L Peritoneal RBC 228 H Periton Nuc Cells 26 H Periton Neutrophils 15 Periton Lymphocytes 66 Peritoneal Monocytes 10 Peritoneal Eosinophils 1 Periton Mesothelial 2 Periton Histiocytes 6 05/16/18 05/16/18 05/16/18 07:33 11:38 14:34 CBC w Diff Auto diff final WBC 6.5 RBC 3.20 L Hgb 10.2 L Hct 29.5 L MCV 92.5 MCH 32.0 MCHC 34.6 RDW 14.4 Plt Count 219 MPV 9.4 Neut % (Auto) 68.0 Lymph % (Auto) 20.6 Moca % (Auto) 5.8 Eos % (Auto) 4.9 H Baso % (Auto) 0.7 Neut # (Auto) 4.5 Lymph # (Auto) 1.3 Moca # (Auto) 0.4 Eos # (Auto) 0.3 Baso # (Auto) 0.0 WBC Differential . Differential Comment . Sodium Potassium Chloride Carbon Dioxide Anion Gap BUN Creatinine Estimated GFR POC Glucose 109 101 Random Glucose Calcium Phosphorus Total Bilirubin AST ALT Alkaline Phosphatase Total Protein Albumin Peritoneal RBC Periton Nuc Cells Periton Neutrophils Periton Lymphocytes Peritoneal Monocytes Peritoneal Eosinophils Periton Mesothelial Periton Histiocytes - Imaging Imaging: ITS Impressions Hepatobiliary Scan Nuclear Medicine 05/16/18 00:00 CONCLUSION: Nonvisualization of the gallbladder and 120 minutes suspicious for acute cholecystitis in the proper clinical setting. Delayed imaging at 24 hours could be performed for greater specificity. Assessment and Plan - Assessment (1) Cholelithiasis Code(s): K80.20 - Calculus of gallbladder without cholecystitis without obstruction Status: Acute Plan: 67 year old male with ESRD on PD; with RUQ pain; cholelithiasis -HIDA scan shows non visualization of the gallbladder -Due to PD catheter---will plan for IR placement of cholecystostomy tube tomorrow -NPO after MN -Explained to patient that we will leave tube in to go home and and plan for a cholangiogram in a few weeks Discussed with Dr. Antony; patient will need to have temporary Vas-Cath placed and peritoneal dialysis discontinued in order to undergo cholecystectomy. We will have interventional radiology place cholecystostomy tube for the time being and will coordinate discontinuation of peritoneal dialysis and Vas-Cath placement. Patient will need to have surgery after this and then undergo peritoneal dialysis restarting about a week after surgery. I have discussed this with the patient as well. Will have patient undergo surgery in approximately 2-6 weeks. The exam, history, and the medical decision-making described in the above note were completed with the assistance of the mid-level provider. I reviewed and agree with the findings presented. I attest that I had a [id number] encounter with the patient on the same day, and personally performed and documented my assessment and findings in the medical record.
[2018-05-17 07:08] LABS: INR 1.1 Ratio; Prothrombin Time 10.8 sec (9.8-11.6)
[2018-05-17] MEDS: Insulin NovoLOG Aspart Correctional Sugar Inj SQ SCH ×4 (08:07→20:43)
[2018-05-17] MEDS: Metoprolol Tartrate 50 MG Tablet PO SCH ×2 (09:20→20:38)
[2018-05-17] MEDS: hydrALAZINE 50 MG Tablet PO SCH ×2 (09:20→20:38)
[2018-05-17] MEDS: amLODIPine 5 MG Tablet PO SCH (09:20)
--- NOTE | 2018-05-17 09:29 | P.PNGS ---
Subjective Patient reports: no new complaints, pain is less (npo) Physical Exam Vital signs: Vital Signs 05/16/18 16:00 05/16/18 20:00 05/17/18 00:00 Temperature 98.0 F 96.8 F L 97 F L Pulse Rate 63 67 63 Respiratory Rate 16 20 20 Blood Pressure 128/64 151/74 H 137/76 Pulse Oximetry 98 100 96 Intake & Output 05/16/18 05/17/18 05/17/18 18:59 06:59 18:59 Intake Total 480 / 480 160 / 160 Output Total 326 / 326 125 / 125 432 / 432 Balance 154 / 154 35 / 35 -432 / -432 Weight 77.1 kg Intake: IV 100 / 100 Rocephin Inj 2,000 MG In NS Inj 100 / 100 100 ML @ 200 mls/hr IV.SIG Q24H [facility] Rx#:[id number] Oral 480 / 480 60 / 60 Output: Urine 125 / 125 Peritoneal Amount 326 / 326 432 / 432 Other: # Voids 5 1 # Bowel Movements 0 - Routine Respiratory Exam Present: CTA bilaterally - Routine Cardiovascular Exam Present: RRR - Routine Abdominal Exam Present: soft (cath in place, no tender exam) Results - Labs 05/16/18 07:33 05/16/18 07:33 Laboratory Results - last 24 hr 05/16/18 05/16/18 05/16/18 11:38 14:34 21:12 PT INR POC Glucose 109 101 208 H 05/17/18 05/17/18 06:35 08:03 PT 10.8 INR 1.1 POC Glucose 121 H - Imaging Imaging: ITS Impressions Hepatobiliary Scan Nuclear Medicine 05/16/18 00:00 CONCLUSION: Nonvisualization of the gallbladder and 120 minutes suspicious for acute cholecystitis in the proper clinical setting. Delayed imaging at 24 hours could be performed for greater specificity. Assessment and Plan - Assessment (1) Cholelithiasis Code(s): K80.20 - Calculus of gallbladder without cholecystitis without obstruction Status: Acute Plan: 67 year old male with ESRD on PD; with RUQ pain; cholelithiasis -HIDA scan shows non visualization of the gallbladder PLAN npo for IR drain cholecystostomy tube today, ok for soft renal diet following procedure d/c planning following tube and will need cholangiogram in a few weeks will continue to follow correct lytes
--- NOTE | 2018-05-17 11:53 | P.PN ---
Subjective Interval history: Follow-up for possible acute cholecystitis, ESRD on PD. Patient is currently doing well. Denies any chest pain, shortness of breath, fever or chills. Denies any abdominal pain. Physical Exam Vital signs: Vital Signs 05/16/18 16:00 05/16/18 20:00 05/17/18 00:00 Temperature 98.0 F 96.8 F L 97 F L Pulse Rate 63 67 63 Respiratory Rate 16 20 20 Blood Pressure 128/64 151/74 H 137/76 Pulse Oximetry 98 100 96 05/17/18 08:00 Temperature 98.0 F Pulse Rate 64 Respiratory Rate 16 Blood Pressure 133/62 Pulse Oximetry 97 Intake & Output 05/16/18 05/17/18 05/17/18 18:59 06:59 18:59 Intake Total 480 / 480 160 / 160 Output Total 326 / 326 125 / 125 432 / 432 Balance 154 / 154 35 / 35 -432 / -432 Weight 77.1 kg Intake: IV 100 / 100 Rocephin Inj 2,000 MG In NS Inj 100 / 100 100 ML @ 200 mls/hr IV.SIG Q24H [facility] Rx#:[id number] Oral 480 / 480 60 / 60 Output: Urine 125 / 125 Peritoneal Amount 326 / 326 432 / 432 Other: # Voids 5 1 # Bowel Movements 0 Narrative: GENERAL: Alert, oriented x3, NAD. SKIN: Warm and dry. HEAD: Normocephalic. EYES: No scleral icterus. No injection or drainage. NECK: Supple, trachea midline. No JVD or lymphadenopathy. CARDIOVASCULAR: Regular rate and rhythm without murmurs, gallops, or rubs. RESPIRATORY: Breath sounds equal bilaterally. No accessory muscle use. GASTROINTESTINAL: Abdomen soft, non-tender, nondistended. PD catheter area looks unremarkable. MUSCULOSKELETAL: No cyanosis, or edema. BACK: Nontender without obvious deformity. No CVA tenderness. Results - Labs CBC & Chem 7: 05/16/18 07:33 05/16/18 07:33 Laboratory Results - last 24 hr 05/16/18 05/16/18 05/16/18 11:38 14:34 21:12 PT INR POC Glucose 109 101 208 H 05/17/18 05/17/18 06:35 08:03 PT 10.8 INR 1.1 POC Glucose 121 H Microbiology 05/15/18 20:00 Fluid - Peritoneal fluid Gram Stain - Final 05/15/18 20:00 Fluid - Peritoneal fluid Body Fluid Culture - Preliminary No growth in 24 hours - Imaging Impressions Hepatobiliary Scan Nuclear Medicine 05/16/18 00:00 CONCLUSION: Nonvisualization of the gallbladder and 120 minutes suspicious for acute cholecystitis in the proper clinical setting. Delayed imaging at 24 hours could be performed for greater specificity. Assessment and Plan - Plan Mr. Peraza is a 67-year-old male with a history of hypertension, ESRD on peritoneal dialysis who presents to the emergency department due to abdominal pain and associated nausea vomiting. Gallbladder ultrasound shows cholecystitis. Acute cholecystitis -Consulted general surgery. -Continue ceftriaxone 2 g every 24 hours. We will continue Cipro for 7 days upon discharge -HIDA scan shows gallbladder nonvisualization. -Discussed with Dr. Strange on 05/16/2018. The plan is to place a cholecystostomy tube by IR. -Patient will be followed by general surgery for future surgical intervention. -Patient will likely need to be placed on hemodialysis at the time of cholecystectomy consideration. ESRD -Nephrology consulted for peritoneal dialysis. -Low suspicion for peritonitis. PMN count was well below 250. Diabetes mellitus -Pt takes Glipizide at home. -Will continue sliding scale insulin -If needed, we will also start Levemir. -Goal blood glucose 140-180. Full code. SCDs for now.
[2018-05-17] MEDS ORDERED: Heparin 10,000 UNITS/10 ML Vial (for IV use) OTHER PRN ×2 (13:59)
[2018-05-17] MEDS ORDERED: Sod Chloride 0.9% Inj 1,000 ML OTHER PRN ×2 (13:59)
[2018-05-17] MEDS ORDERED: Gelatin 12 MM/7 MM Topical Foam TOPICAL PRN (13:59)
[2018-05-17] MEDS ORDERED: Albumin Human 25% Inj 100 ML IV.SIG PRN (13:59)
[2018-05-17] MEDS ORDERED: Sod Chloride 0.9% Inj 1,000 ML IV.CONT PRN (13:59)
[2018-05-17] MEDS ORDERED: Acetaminophen 325 MG Tablet PO PRN (13:59)
[2018-05-17] MEDS ORDERED: Vancomycin Inj 1,000 MG in Sodium Chlor 0.9% Inj 250 ML IV.SIG PRN (14:30)
[2018-05-17] MEDS ORDERED: ceFAZolin 2 GM IV; once IV.SIG PRN (14:31)
--- NOTE | 2018-05-17 16:22 | P.RAD ---
Post Procedure Progress Note - Pre Procedure Diagnosis (1) End-stage renal disease on peritoneal dialysis (2) Cholelithiasis - Post Procedure Diagnosis (1) End-stage renal disease on peritoneal dialysis (2) Cholelithiasis - Procedure Information Procedure Date: 05/17/18 Supervising Radiologist: Hood Ruano MD Estimated blood loss (mL): 5 Anesthesia: Local, Analgesia, Conscious Sedation - Plan of Activity Patient to Unit: PACU Patient Condition: Good See PACS Report for procedural detail/treatment. Drainage Procedure Ultrasound right Cholecystostomy Placement Vietnamese Tube Size: 8 Drainage: [place] drainage Fluid Description: Bilious, Red CVAD Radiology Procedures right Internal Jugular Hemodialysis Catheter Tunneled Placement Vietnamese: 15 PICC Line Length (cm): 23
[2018-05-17] MEDS ORDERED: Morphine Sulfate Inj 2 MG/ML Vial ONE ×3 (16:49→17:06)
[2018-05-17] MEDS ORDERED: Morphine Inj 4 MG/ML Vial IV.PUSH PRN (17:21)
[2018-05-17] MEDS ORDERED: Morphine Sulfate Inj 2 MG/ML Vial IV.PUSH PRN (17:21)
--- NOTE | 2018-05-17 19:15 | P.PNNP ---
Subjective Interval history: Patient is post cholecystostomy and permacath insertion Physical Exam Vital signs: Vital Signs 05/16/18 20:00 05/17/18 00:00 05/17/18 08:00 Temperature 96.8 F L 97 F L 98.0 F Pulse Rate 67 63 64 Respiratory Rate 20 20 16 Blood Pressure 151/74 H 137/76 133/62 Pulse Oximetry 100 96 97 05/17/18 11:54 05/17/18 16:33 05/17/18 17:03 Temperature 97.8 F 97.8 F Pulse Rate 63 70 72 Respiratory Rate 16 16 14 Blood Pressure 118/58 L 151/70 H 152/74 H Pulse Oximetry 96 95 96 05/17/18 18:00 05/17/18 18:27 05/17/18 18:30 Temperature 99 F Pulse Rate 73 74 Respiratory Rate 16 16 Blood Pressure 165/71 H 162/74 H Pulse Oximetry 96 Intake & Output 05/17/18 05/17/18 05/18/18 06:59 18:59 06:59 Intake Total 160 / 160 980 / 980 100 / 100 Output Total 125 / 125 432 / 432 Balance 35 / 35 548 / 548 100 / 100 Weight 77.1 kg Intake: IV 100 / 100 300 / 300 100 / 100 Vancomycin Inj 1,000 MG In NS 250 / 250 Inj 250 ML @ 250 mls/hr IV.SIG [employer] PRN Rx#:[id number] Ancef 2 GM Premix Inj 2 gm In 50 / 50 50 ml @ 100 mls/hr IV.SIG [employer] PRN Rx#:[id number] Rocephin Inj 2,000 MG In NS Inj 100 / 100 100 / 100 100 ML @ 200 mls/hr IV.SIG Q24H [facility] Rx#:[id number] Oral 60 / 60 480 / 480 Other 200 / 200 Output: Urine 125 / 125 Peritoneal Amount 432 / 432 Other: # Voids 1 5 # Bowel Movements 0 Narrative: GENERAL: Alert, oriented x3, NAD. SKIN: Warm and dry. HEAD: Normocephalic. EYES: No scleral icterus. No injection or drainage. NECK: Supple, trachea midline. No JVD or lymphadenopathy. CARDIOVASCULAR: Regular rate and rhythm without murmurs, gallops, or rubs. Permacath on the right side RESPIRATORY: Breath sounds equal bilaterally. No accessory muscle use. GASTROINTESTINAL: Abdomen soft, non-tender, nondistended. PD catheter area looks unremarkable. Cholecystostomy tube in place MUSCULOSKELETAL: No cyanosis, or edema. BACK: Nontender without obvious deformity. No CVA tenderness. Assessment and Plan - Assessment (1) End-stage renal disease on peritoneal dialysis Code(s): N18.6 - End stage renal disease; Z99.2 - Dependence on renal dialysis Status: Acute (2) Cholelithiasis Code(s): K80.20 - Calculus of gallbladder without cholecystitis without obstruction Status: Acute - Plan A abnormal HIDA scan Cholecystostomy tube for cholecystitis Antibiotic Converted to hemodialysis until his gallbladder is taken out and he recovers from surgery Described to him hemodialysis procedure which will be carried out tomorrow Continue monitor Discussed with needs follow-up with surgery, nephrology and arrangement of hemodialysis.
[2018-05-18] MEDS ORDERED: Epoetin Alfa Inj 4,000 UNIT/ML Vial IV.PUSH PRN (07:30)
[2018-05-18] MEDS: Insulin NovoLOG Aspart Correctional Sugar Inj SQ SCH ×2 (08:23→12:10)
[2018-05-18 09:53] LABS: Baso % (Auto) 0.4 % (0.0-2.0); Eos # (Auto) 0.2 th/mm3 (0.0-0.4); Eos % (Auto) 1.4 % (0.0-4.0); Hematocrit 29.2 % (39.0-51.0); Hemoglobin 9.6 gm/dL (13.0-17.0); Lymph # (Auto) 0.9 th/mm3 (1.0-4.8); Lymph % (Auto) 8.1 % (9.0-44.0); Mean Corpuscular HGB Conc 32.9 % (32.0-36.0); Mean Corpuscular Hemoglobin 30.9 pg (27.0-34.0); Mean Corpuscular Volume 93.7 fL (80.0-100.0); Mean Platelet Volume 9.7 fL (7.0-11.0); Mono # (Auto) 0.5 th/mm3 (0.0-0.9); Mono % (Auto) 4.6 % (0.0-8.0); Neut % (Auto) 85.5 % (16.0-70.0); Platelet Count 229 th/mm3 (150-450); Red Blood Count 3.12 mil/mm3 (4.50-5.90); Red Cell Distribution Width 13.9 % (11.6-17.2); White Blood Count 11.6 th/mm3 (4.0-11.0)
[2018-05-18 10:07] LABS: Potassium 3.5 meq/L (3.5-5.1)
[2018-05-18 10:11] LABS: Calcium 8.4 mg/dL (8.5-10.1); Carbon Dioxide 27.5 meq/L (21.0-32.0)
--- NOTE | 2018-05-18 10:56 | P.PN ---
Subjective Interval history: Follow-up for possible acute cholecystitis, ESRD. Patient is currently doing well. Denies any chest pain, shortness of breath, fever or chills. He does have some abdominal pain after cholecystostomy tube was placed. He underwent cholecystostomy tube placement as well as permacath placement yesterday. He already had his first hemodialysis today. Patient goes to [facility] dialysis center in [place]. Physical Exam Vital signs: Vital Signs 05/17/18 11:54 05/17/18 16:33 05/17/18 17:03 Temperature 97.8 F 97.8 F Pulse Rate 63 70 72 Respiratory Rate 16 16 14 Blood Pressure 118/58 L 151/70 H 152/74 H Pulse Oximetry 96 95 96 05/17/18 18:00 05/17/18 18:27 05/17/18 18:30 Temperature 99 F Pulse Rate 73 74 Respiratory Rate 16 16 Blood Pressure 165/71 H 162/74 H Pulse Oximetry 96 05/17/18 19:49 05/17/18 20:00 05/18/18 00:00 Temperature 98.4 F 100.4 F H Pulse Rate 76 75 Respiratory Rate 18 18 Blood Pressure 161/74 H 127/59 L Pulse Oximetry 92 L 94 L 93 L 05/18/18 04:00 05/18/18 08:00 Temperature 100.1 F H 98.7 F Pulse Rate 72 61 Respiratory Rate 18 20 Blood Pressure 120/58 L 126/64 Pulse Oximetry 93 L 95 Intake & Output 05/17/18 05/18/18 05/18/18 18:59 06:59 18:59 Intake Total 980 / 980 340 / 340 240 / 240 Output Total 432 / 432 800 / 800 500 / 500 Balance 548 / 548 -460 / -460 -260 / -260 Weight 77.2 kg Intake: IV 300 / 300 100 / 100 Vancomycin Inj 1,000 MG In NS 250 / 250 Inj 250 ML @ 250 mls/hr IV.SIG BIOLOGY SPECIMEN TECHNICIAN PRN Rx#:[id number] Ancef 2 GM Premix Inj 2 gm In 50 / 50 50 ml @ 100 mls/hr IV.SIG BIOLOGY SPECIMEN TECHNICIAN PRN Rx#:[id number] Rocephin Inj 2,000 MG In NS Inj 100 / 100 100 ML @ 200 mls/hr IV.SIG Q24H BALDO Rx#:[id number] Oral 480 / 480 240 / 240 240 / 240 Other 200 / 200 Output: Urine 300 / 300 Peritoneal Amount 432 / 432 Hemodialysis Amount 500 / 500 Wound Drainage 500 / 500 # 1 Right Abdomen T-Tube 500 / 500 Other: # Voids 5 # Bowel Movements 0 Narrative: GENERAL: Alert, oriented x3, NAD. SKIN: Warm and dry. HEAD: Normocephalic. EYES: No scleral icterus. No injection or drainage. NECK: Supple, trachea midline. No JVD or lymphadenopathy. CARDIOVASCULAR: Regular rate and rhythm without murmurs, gallops, or rubs. Permacath on the right side RESPIRATORY: Breath sounds equal bilaterally. No accessory muscle use. GASTROINTESTINAL: Abdomen soft, non-tender, nondistended. PD catheter area looks unremarkable. Cholecystostomy tube in place MUSCULOSKELETAL: No cyanosis, or edema. BACK: Nontender without obvious deformity. No CVA tenderness. Results - Labs CBC & Chem 7: 05/18/18 07:45 05/18/18 07:45 Laboratory Results - last 24 hr 05/17/18 05/17/18 05/18/18 12:04 20:41 07:45 CBC w Diff Auto diff final WBC 11.6 H RBC 3.12 L Hgb 9.6 L Hct 29.2 L MCV 93.7 MCH 30.9 MCHC 32.9 RDW 13.9 Plt Count 229 MPV 9.7 Neut % (Auto) 85.5 H Lymph % (Auto) 8.1 L [place] % (Auto) 4.6 Eos % (Auto) 1.4 Baso % (Auto) 0.4 Neut # (Auto) 10.0 H Lymph # (Auto) 0.9 L [place] # (Auto) 0.5 Eos # (Auto) 0.2 Baso # (Auto) 0.0 WBC Differential . Differential Comment . Sodium Potassium Chloride Carbon Dioxide Anion Gap BUN Creatinine Estimated GFR POC Glucose 125 H 95 Random Glucose Calcium 05/18/18 05/18/18 07:45 08:12 CBC w Diff WBC RBC Hgb Hct MCV MCH MCHC RDW Plt Count MPV Neut % (Auto) Lymph % (Auto) [place] % (Auto) Eos % (Auto) Baso % (Auto) Neut # (Auto) Lymph # (Auto) [place] # (Auto) Eos # (Auto) Baso # (Auto) WBC Differential Differential Comment Sodium 141 Potassium 3.5 Chloride 103 Carbon Dioxide 27.5 Anion Gap 11 BUN 57 H Creatinine 11.00 H* Estimated GFR 5 L POC Glucose 115 H Random Glucose 110 H Calcium 8.4 L Microbiology 05/15/18 20:00 Fluid - Peritoneal fluid Gram Stain - Final 05/15/18 20:00 Fluid - Peritoneal fluid Body Fluid Culture - Preliminary No growth in 48 hours - Imaging Hepatobiliary Scan Nuclear Medicine 05/16/18 00:00 CONCLUSION: Nonvisualization of the gallbladder and 120 minutes suspicious for acute cholecystitis in the proper clinical setting. Delayed imaging at 24 hours could be performed for greater specificity. Assessment and Plan - Plan Mr. Peraza is a 67-year-old male with a history of hypertension, ESRD on peritoneal dialysis who presents to the emergency department due to abdominal pain and associated nausea vomiting. Gallbladder ultrasound shows cholecystitis. Acute cholecystitis -Consulted general surgery. -Continue ceftriaxone 2 g every 24 hours. We will continue Cipro for 7 days upon discharge -HIDA scan shows gallbladder nonvisualization. -s/p cholecystostomy tube placement. ESRD -Nephrology consulted -Low suspicion for peritonitis. PMN count was well below 250. -Patient now has permacath and received first hemodialysis today 05/18/2018. Diabetes mellitus -Pt takes Glipizide at home. -Will continue sliding scale insulin -If needed, we will also start Levemir. -Goal blood glucose 140-180. Full code. SCDs for now. Discharge plan: Patient can likely be discharged today to continue hemodialysis at [facility].
[2018-05-18] MEDS: amLODIPine 5 MG Tablet PO SCH (12:09)
[2018-05-18] MEDS: hydrALAZINE 50 MG Tablet PO SCH (12:10)
[2018-05-18] MEDS: Metoprolol Tartrate 50 MG Tablet PO SCH (12:10)
[2018-05-18 12:18] LABS: Hepatitits B Surface Antigen Nonreactive (Nonreactive)
[2018-05-18 12:36] LABS: Hepatitis A IgM Antibody Nonreactive (Nonreactive)
--- NOTE | 2018-05-18 15:04 | P.DCO ---
- Home Health Nursing Order: Medical education, Signs/symptoms of disease process, Medication education-adverse effect, Wound care and dressing changes, Nursing assessment with vital signs - Case Management Consult No - Certification I have seen patient Derrek Peraza on 05/18/18. My clinical findings support the need for the requested home health care services because: Limited mobility due to disease progression, Patient has SOB, Deconditioned with increased weakness, Limited ability to care for self, Need for psychosocial assistance, Impaired cognition/judgement, High risk of falls, Infection with risk of complications I certify that my clinical findings support that this patient is homebound because: Post-op weakness, Unsteady gait/balance, Unsafe to leave home unassisted, Need for psychosocial assistance, Non-ambulatory: confined to bed or chair, Unable to use public transportation
--- NOTE | 2018-05-18 15:21 | P.DS ---
Date of admission: 05/15/18 17:25 Primary care physician: UNKNOWN Attending physician on discharge: Eva Mortensen Anticipated date of discharge: 05/18/18 Brief History from admission: Mr. Peraza is a 67-year-old male with a history of hypertension, ESRD on peritoneal dialysis who presented to the emergency department in [place] due to abdominal pain that started at night on 05/14/2018. Patient started experiencing abdominal pain at night during his peritoneal dialysis. He woke up with pain during peritoneal dialysis. He described his pain as dull but also stabbing sharp pain occasionally. His pain is mostly located in the epigastric and slightly to the left. He does not have much pain over RUQ. However, if palpated, he feels pain in the RUQ. He did not take any medication for his pain. He denies any chest pain, shortness of breath, fever or chills. However he had some nausea and vomiting in the morning on the day of presentation to the ED. GB ultrasound indicated cholecystitis. Patient was subsequently transferred to the main hospital for further management. Past medical history: ESRD on peritoneal dialysis, BPH, diabetes, GERD, hypertension, hyperlipidemia Past surgical history: Social history: Patient denies using tobacco, alcohol. Family history: Mother had Alzheimer's disease, diabetes and CAD, father had diabetes mellitus and CAD. Patient update on day of discharge: Patient is currently doing well. He already had hemodialysis today. He goes to [facility] in [place] where he can obtain hemodialysis. I discussed with environmental permitting specialist Surgeon Dr. Platt. We will discharge patient home with home health. Patient's Cholecystostomy tube can be drained by himself or home health nurse. He will need to follow up with Surgery in near future and coordinate work up in order to undergo Cholecystectomy. DS: Medications - Discharge Medications Prescriptions: moxifloxacin 400 mg PO DAILY #10 tab DS: Summary Hospital Course: Mr. Peraza is a 67-year-old male with a history of hypertension, ESRD on peritoneal dialysis who presents to the emergency department due to abdominal pain and associated nausea vomiting. Gallbladder ultrasound shows cholecystitis. Acute cholecystitis -Consulted general surgery. -Continue ceftriaxone 2 g every 24 hours. will continue Moxifloxacin upon discharge. -HIDA scan shows gallbladder nonvisualization. -s/p cholecystostomy tube placement and PermaCath placement ESRD -Nephrology consulted -Low suspicion for peritonitis. PMN count was well below 250. -Patient now has permacath and received first hemodialysis today 05/18/2018. -Patient will continue hemodialysis in [place]. Diabetes mellitus -Pt takes Glipizide at home. -Will continue sliding scale insulin -If needed, we will also start Levemir. -Goal blood glucose 140-180. Patient is being discharged home with home health. - Time Spent with Patient Total time spent providing and/or coordinating discharge services: Less than 30 minutes - Quality: VTE Deep Vein Thrombosis/Pulmonary Embolism Present on Admission: No Exam Vital signs: Vital Signs 05/17/18 16:33 05/17/18 17:03 05/17/18 18:00 Temperature 97.8 F Pulse Rate 70 72 73 Respiratory Rate 16 14 16 Blood Pressure 151/70 H 152/74 H 165/71 H Pulse Oximetry 95 96 05/17/18 18:27 05/17/18 18:30 05/17/18 19:49 Temperature 99 F Pulse Rate 74 Respiratory Rate 16 Blood Pressure 162/74 H Pulse Oximetry 96 92 L 05/17/18 20:00 05/18/18 00:00 05/18/18 04:00 Temperature 98.4 F 100.4 F H 100.1 F H Pulse Rate 76 75 72 Respiratory Rate 18 18 18 Blood Pressure 161/74 H 127/59 L 120/58 L Pulse Oximetry 94 L 93 L 93 L 05/18/18 08:00 05/18/18 12:00 05/18/18 12:34 Temperature 98.7 F Pulse Rate 61 67 Respiratory Rate 20 19 18 Blood Pressure 126/64 130/61 Pulse Oximetry 95 96 Intake & Output 05/17/18 05/18/18 05/18/18 18:59 06:59 18:59 Intake Total 980 / 980 340 / 340 600 / 600 Output Total 432 / 432 800 / 800 500 / 500 Balance 548 / 548 -460 / -460 100 / 100 Weight 77.2 kg Intake: IV 300 / 300 100 / 100 Vancomycin Inj 1,000 MG In NS 250 / 250 Inj 250 ML @ 250 mls/hr IV.SIG SERVICENOW ADMINISTRATOR PRN Rx#:[id number] Ancef 2 GM Premix Inj 2 gm In 50 / 50 50 ml @ 100 mls/hr IV.SIG SERVICENOW ADMINISTRATOR PRN Rx#:[id number] Rocephin Inj 2,000 MG In NS Inj 100 / 100 100 ML @ 200 mls/hr IV.SIG Q24H BALDO Rx#:[id number] Oral 480 / 480 240 / 240 600 / 600 Other 200 / 200 Output: Urine 300 / 300 0 / 0 Stool 0 / 0 Peritoneal Amount 432 / 432 Hemodialysis Amount 500 / 500 Wound Drainage 500 / 500 # 1 Right Abdomen T-Tube 500 / 500 Other: # Voids 5 Date of Last Bowel Movement 05/18/18 # Bowel Movements 0 Results Procedures completed during hospitalization: 05/17/2018: Cholecystostomy tube and Permacath placement. Labs on day of discharge: Labs from last 24 hours 05/18/18 05/18/18 05/18/18 12:06 08:12 07:45 CBC w Diff WBC RBC Hgb Hct MCV MCH MCHC RDW Plt Count MPV Neut % (Auto) Lymph % (Auto) [place] % (Auto) Eos % (Auto) Baso % (Auto) Neut # (Auto) Lymph # (Auto) [place] # (Auto) Eos # (Auto) Baso # (Auto) WBC Differential Differential Comment Sodium 141 Potassium 3.5 Chloride 103 Carbon Dioxide 27.5 Anion Gap 11 BUN 57 H Creatinine 11.00 H* Estimated GFR 5 L POC Glucose 113 H 115 H Random Glucose 110 H Calcium 8.4 L Hepatitis A IgM Ab Hep Bs Antigen Hep B Core IgM Ab Hep C IgG Ab 05/18/18 05/18/18 05/17/18 07:45 07:45 20:41 CBC w Diff Auto diff final WBC 11.6 H RBC 3.12 L Hgb 9.6 L Hct 29.2 L MCV 93.7 MCH 30.9 MCHC 32.9 RDW 13.9 Plt Count 229 MPV 9.7 Neut % (Auto) 85.5 H Lymph % (Auto) 8.1 L [place] % (Auto) 4.6 Eos % (Auto) 1.4 Baso % (Auto) 0.4 Neut # (Auto) 10.0 H Lymph # (Auto) 0.9 L [place] # (Auto) 0.5 Eos # (Auto) 0.2 Baso # (Auto) 0.0 WBC Differential . Differential Comment . Sodium Potassium Chloride Carbon Dioxide Anion Gap BUN Creatinine Estimated GFR POC Glucose 95 Random Glucose Calcium Hepatitis A IgM Ab Nonreactive Hep Bs Antigen Nonreactive Hep B Core IgM Ab Nonreactive Hep C IgG Ab Nonreactive Preliminary micro results at discharge 05/15/18 20:00 Body Fluid Culture - Preliminary Fluid - Peritoneal fluid No growth in 48 hours - Impressions ITS Impressions Hepatobiliary Scan Nuclear Medicine 05/16/18 00:00 CONCLUSION: Nonvisualization of the gallbladder and 120 minutes suspicious for acute cholecystitis in the proper clinical setting. Delayed imaging at 24 hours could be performed for greater specificity. Discharge Plan - Discharge Disposition Patient Disposition: Discharge Home - Discharge Condition Condition: Good - Discharge Order Discharge Orders: Discharge Order (Routine); Ordered 05/18/18 Ordered By: Eva Mortensen - Discharge Details Anticipated Discharge Date: 05/16/18 Discharge Comment: Pt needs to follow up with Surgeon within 7-10 days. Will need outpatient Cholangiogram. - Physicians Team Primary Care Provider: UNKNOWN, Attending Provider: Eva Mortensen Other Providers: Wyatt Strange MD ; Briana Antony MD ; Federica Stallworth - Rxs /Orders / Referrals /Forms Prescriptions: New moxifloxacin 400 mg Tablet 400 mg PO DAILY Qty: 10 RF: 0 Continue amlodipine 5 mg Tablet 10 mg PO DAILY B complex-vitamin C-folic acid [Renal Vitamin] 0.8 mg Tablet 1 tab PO DAILY calcitriol 0.5 mcg Capsule 0.5 mcg PO WEEKLY furosemide [Lasix] 40 mg Tablet 40 mg PO BID glipizide 5 mg Tablet 5 mg PO DAILY hydralazine 50 mg Tablet 50 mg PO BID metoprolol tartrate 50 mg Tablet 50 mg PO BID Referrals: Wyatt Strange MD [GENERAL SURGERY] - See Instructions (Follow up within one week. ) UNKNOWN, [Primary Care Provider] - See Instructions (Follow up within 1-2 weeks. ) - Discharge Instructions Patient Printed Instructions: Moxifloxacin (By mouth), Gallstones (GEN), End Stage Kidney Disease (GEN), Hemovac Drain Care (DC), Hemovac Drain Care (GEN), Hemodialysis (GEN)
--- NOTE | 2018-05-29 14:54 | IR ---
EXAM DATE: 05/17/2018 4:58 PM EST AGE/SEX: 67 years / Male INDICATIONS: Patient presents with history of Peritoneal Dialysis in need of a Tunneled Central Veno us Dialysis Catheter for hemodialysis. CLINICAL DATA: This is the patient's initial encounter. Patient reports that signs and symptoms have been present for 2 days and indicates a pain score of 0/10. MEDICAL/SURGICAL HISTORY: Arthritis. Gastroesophageal reflux disease. Diabetes. BPH, ESRD on peritoneal dialysis, HTN, Hyperlipidemia, kidney stones. . PD catheter. COMPARISON: No prior exams available for comparison. FLUORO TIME (min): 0.36 IMAGE SERIES: 3 ACCESS SITE: Right internal jugular vein SEDATION TIME (min): 60 MEDICATION(S): 4mg midazolam (Versed) IV 200mcg fentanyl (Sublimaze) IV DEVICE(S): Frederick 15 FR x 23 cm Double Lumen . . PROCEDURE: 1. Ultrasound-guided venipuncture. 2. PermaCath placement. 3. Conscious sedation with continuous EKG and oximetry monitoring. The risks, benefits and alternatives to the procedure were explained and verbal and written consent w as obtained. The site was prepped in sterile fashion. Full sterile technique was used, including ca p, mask, sterile gloves and gown and a large sterile sheet. Hand hygiene and 2% chlorhexidine and/or betadine/alcohol prep was utilized per protocol for cutaneous antisepsis. Sterile gel and sterile p robe cover were utilized for ultrasound guidance. The skin and subcutaneous tissues were infiltrated with local anesthetic solution. With ultrasound and fluoroscopic guidance a dermatotomy was created over the prescribed vein. A micr opuncture set was used to access the targeted vein and serial dilatation was performed to accept the prescribed length catheter. A subcutaneous tunnel was created in a retrograde fashion the catheter w as pulled through the tunnel. The catheter was flushed and assembled and locked with heparin. The c atheter was sutured in place. Conscious sedation was performed with the prescribed dosages and duration as above in the presence of an independent trained radiology nurse to assist in the monitoring of the patient. EKG and oximetry remained stable throughout the procedure. The patient tolerated the procedure well and there were n o complications. The patient was sent to post anesthesia recovery in stable condition. CONCLUSION: 1. Uncomplicated PermaCath placement as above. Electronically signed by: Hood Ruano MD 05/29/2018 2:53 PM EST
--- NOTE | 2018-05-29 14:54 | IR ---
EXAM DATE: 05/17/2018 4:44 PM EST AGE/SEX: 67 years / Male INDICATIONS: Patient presents with Cholecystitis in need of a Percutaneous Cholecystostomy tube plac ement for drainage. CLINICAL DATA: This is the patient's initial encounter. Patient reports that signs and symptoms have been present for 2 days and indicates a pain score of 0/10. MEDICAL/SURGICAL HISTORY: Arthritis. Diabetes. Gastroesophageal reflux disease. BPH, ESRD on peritoneal dialysis, HTN, Hyperlipidemia, Kidney stones. . PD catheter. COMPARISON: No prior exams available for comparison. FLUORO TIME (min): 8.56 IMAGE SERIES: 3 SEDATION TIME (min): 60 CONTRAST (cc): 10 Omnipaque (iohexol) 350 MEDICATION(S): 4mg midazolam (Versed) IV 200mcg fentanyl (Sublimaze) IV DEVICE(S): 8 Georgian All purpose drain KATHY Locking pigtail 30 cm . . PROCEDURE: 1. Ultrasound guided puncture of the gallbladder. 2. Percutaneous cholangiogram. 3. Percutaneous cholecystostomy tube placement. 4. Conscious sedation with continuous EKG and oximetry monitoring. The risks, benefits and alternatives to the procedure were explained and verbal and written consent w as obtained. The site was prepped in sterile fashion. Full sterile technique was used, including ca p, mask, sterile gloves and gown and a large sterile sheet. Hand hygiene and 2% chlorhexidine and/or betadine/alcohol prep was utilized per protocol for cutaneous antisepsis. Sterile gel and sterile p robe cover were utilized for ultrasound guidance. The skin and subcutaneous tissues were infiltrated with local anesthetic solution. With ultrasound and fluoroscopic guidance the gallbladder was punctured with a micropuncture set and a 4 Georgian dilator was placed. Injection of positive contrast demonstrates position within the gallb ladder. A 0.035 guidewire was placed within the gallbladder lumen and dilatation was performed to ac cept the prescribed catheter. Conscious sedation was performed with the prescribed dosages and duration as above in the presence of an independent trained radiology nurse to assist in the monitoring of the patient. EKG and oximetry remained stable throughout the procedure. The patient tolerated the procedure well and there were n o complications. The patient was sent to post anesthesia recovery in stable condition. CONCLUSION: 1. Uncomplicated percutaneous cholecystostomy as above. Electronically signed by: Hood Ruano MD 05/29/2018 2:53 PM EST
== END 2018-05-18 16:30 | disposition home or self-care (01) ==
LOC: PHEDDLT 17:24 → PHEDA 17:25 → INTOOBSV 17:25
PROVIDERS: ADMIT Hospitalist; ATTEND Hospitalist